=== PATIENT | male | born 1975 | race Caucasian/White ===

== ENCOUNTER 2024-02-06 19:56 | Emergency (ER) | payer BC ==
[~2024-02-06] VITALS: Ht 182.9 cm; Wt 81.6 kg
[~2024-02-06 19:56] MED LIST: SUBOXONE 8 MG-1 EACH PO
[2024-02-06] MEDS: SODIUM CHLORIDE 0.9% 1000ML 2,000 ML IV STA (20:10)
[2024-02-06] MEDS ORDERED: SODIUM CHLORIDE 0.9% 1000ML 1,000 ML ONE (20:10)
[2024-02-06] MEDS: ACETAMINOPHEN 325 MG TAB PO STA (20:10)
[2024-02-06] MEDS ORDERED: ACETAMINOPHEN 325 MG TAB ONE (20:10)
[2024-02-06 20:13] LABS: BASOPHILS % 0.4 % (0.0-1.0); EOSINOPHILS # (AUTO) 0.2 (0.0-0.4); EOSINOPHILS % 1.8 % (0.0-6.0); HEMATOCRIT 39.3 % (38.2-49.6); HEMOGLOBIN 13.4 g/dL (14.0-18.0); LYMPHOCYTES # (AUTO) 0.3 (1.0-3.2); LYMPHOCYTES % 3.5 % (18.0-39.1); MEAN CORPUSCULAR HEMOGLOBIN 30.1 pg (28-32); MEAN CORPUSCULAR HGB CONC 34.1 g/dL (31-35); MEAN CORPUSCULAR VOLUME 88.3 fL (81-99); MONOCYTES # (AUTO) 0.9 (0.2-0.8); MONOCYTES % 10.1 % (4.4-11.3); NEUTROPHILS # (AUTO) 7.2 (2.1-6.9); PLATELET COUNT 271 x10e3/uL (140-360); RED BLOOD COUNT 4.45 x10e6/uL (4.3-5.7); RED CELL DISTRIBUTION WIDTH 12.5 % (11.7-14.4); WHITE BLOOD COUNT 8.55 x10e3/uL (4.8-10.8)
[2024-02-06 20:29] LABS: STREPTOCOCCUS GRP A ANTIGEN NEGATIVE (NEGATIVE)
[2024-02-06 20:32] LABS: ALANINE AMINOTRANSFERASE 21 IU/L (0-55); ALBUMIN 3.9 g/dL (3.5-5.0); ALBUMIN/GLOBULIN RATIO 1.1 (0.8-2.0); ALKALINE PHOSPHATASE 97 IU/L (40-150); BILIRUBIN,TOTAL 0.6 mg/dL (0.2-1.2); BLOOD UREA NITROGEN 13 mg/dL (7-26); BUN/CREATININE RATIO 13 (6-25); CALCIUM 8.5 mg/dL (8.4-10.2); CARBON DIOXIDE 22 mmol/L (22-29); CHLORIDE 101 mmol/L (98-107); CREATINE KINASE 142 IU/L (30-200); EST GLOMERULAR FILTRATION RATE 93 ML/MIN (>=60); GLUCOSE 124 mg/dL (74-118); SODIUM 133 mmol/L (136-145); TOTAL PROTEIN 7.3 g/dL (6.5-8.1)
[2024-02-06 20:44] LABS: TROPONIN I < 0.001 ng/mL (0-0.300)
[2024-02-06 20:45] LABS: INFLUENZAE A&B ANTIGEN (RAPID) NEGATIVE (NEGATIVE)
[2024-02-06] MEDS ORDERED: PAXLOVID 300-11 EAC1 PO (21:12)
[2024-02-06 21:28] VITALS: PULSE 102; RESP 16; TEMP 99
[2024-02-06 21:29] VITALS: BP 122/82; PULSE 102; RESP 16; TEMP 99; O2SAT 96
== END 2024-02-06 21:25 | disposition home or self-care (01) ==
LOC: ER 20:03
DX: U07.1 COVID-19 (principal); R07.9 Chest pain, unspecified
CPT/HCPCS: 36415; 71045; 80053; 82550; 83518; 83690; 83880; 84484; 85025; 87070; 87400; 93005; 99284; J7030; U0002

== ENCOUNTER 2025-05-07 18:08 | Emergency (ER) | payer BC ==
[~2025-05-07] VITALS: Ht 182.9 cm; Wt 81.6 kg
[~2025-05-07 18:08] MED LIST changes: +PAXLOVID 300-11 EAC1 PO
[2025-05-07 19:05] VITALS: PULSE 92; RESP 18; TEMP 99; O2SAT 100
== END 2025-05-07 20:15 | disposition left against medical advice (07) ==
LOC: ER 20:15
DX: H53.8 Other visual disturbances (principal)
CPT/HCPCS: 99283